=== PATIENT | male | born 1960 | race African-American/Black ===

== ENCOUNTER 2022-04-22 10:30 | Emergency (ER) | payer SELFPAY ==
[~2022-04-22] VITALS: Ht 185.4 cm; Wt 108.0 kg
[2022-04-22 10:35] VITALS: BP 143/91
[2022-04-22 13:03] LABS: BASOPHILS % 0.6 % (0.0-2.0); EOSINOPHILS % 2.9 % (0.0-5.0); HEMOGLOBIN. 12.8 g/dL (14.0-18.0); LYMPHOCYTES % 27.4 % (20.0-50.0); MEAN CORPUSCULAR HEMOGLOBIN 32.2 pg (28.0-32.0); MEAN CORPUSCULAR VOLUME 95.4 fL (80.0-94.0); MEAN PLATELET VOLUME 7.6 fl (7.4-10.4); MONOCYTES % 11.3 % (2.0-8.0); NEUTROPHILS % 57.8 % (40.0-76.0); PLATELET 301 x1000/uL (130-400); RED BLOOD CELL COUNT 3.98 mill/uL (4.7-6.1); RED CELL DISTRIBUTION WIDTH 12.9 % (11.6-14.6)
[2022-04-22 13:31] LABS: CHLORIDE 104 mEq/L (98-107)
== END 2022-04-23 03:14 | disposition left against medical advice (07) ==
LOC: ER 10:40
DX: Z53.21 Procedure and treatment not carried out due to patient leaving prior to being seen by health care provider (principal); R07.9 Chest pain, unspecified; R06.02 Shortness of breath; I10 Essential (primary) hypertension; Z98.890 Other specified postprocedural states
CPT/HCPCS: 36415; 71045; 80053; 84484; 85025; 93005

== ENCOUNTER 2022-10-14 12:26 | Emergency (ER) | payer SELFPAY ==
[~2022-10-14] VITALS: Ht 185.4 cm; Wt 108.0 kg
[2022-10-14] MEDS ORDERED: ACETAMINOPHEN 325MG TABLET PO ONE (13:45)
[2022-10-14] MEDS ORDERED: IBUPROFEN 400MG TABLET PO ONE (13:45)
[2022-10-14] MEDS ORDERED: ACET-2708 MT (13:59)
[2022-10-14 14:25] VITALS: BP 157/90
== END 2022-10-14 14:26 | disposition home or self-care (01) ==
LOC: ER 12:26
DX: M54.2 Cervicalgia (principal); I10 Essential (primary) hypertension
CPT/HCPCS: 99283